=== PATIENT | female | born 1975 | race Caucasian/White ===

== ENCOUNTER 2019-03-08 16:58 | Emergency (ER) | payer MEDICAID ==
[~2019-03-08] VITALS: Ht 160 cm; Wt 64.0 kg
[~2019-03-08 16:58] MED LIST: ACET325T33 PO; CALC600T5 PO; FERR28TA PO; NITR-58 PO; PREN-39 PO
[2019-03-08 17:03] VITALS: Ht 160 cm; Wt 64.0 kg
[2019-03-08] MEDS ORDERED: ACETAMINOPHEN 325 MG TAB PO STA (17:31)
[2019-03-08] MEDS ORDERED: SOD CHLORIDE 0.9% 1,000 ML IV STA (17:31)
[2019-03-08 19:41] VITALS: BP 118/62; PULSE 66; RESP 16
== END 2019-03-08 19:44 | disposition home or self-care (01) ==
LOC: FTE 16:58
DX: O20.0 Threatened abortion (principal); Z3A.01 Less than 8 weeks gestation of pregnancy
CPT/HCPCS: 36415; 76801; 76817; 81001; 84702; 85025; J7030; Z7502; Z7610